=== PATIENT | female | born 1965 | race Caucasian/White ===

== ENCOUNTER 2018-12-27 16:46 | Emergency (ER) | payer MEDICAID ==
[~2018-12-27] VITALS: Ht 152.4 cm; Wt 78.5 kg
[~2018-12-27 16:46] MED LIST: ATENOLOL25 MG PO; ATORVASTATIN CA40 M1 PO; COLACE100 MG PO; ECO81 PO; LIPI20 PO; LISINOPRIL2.5 MG PO; NORCO1 TA2 PO; TEN25 PO; ZES10 PO; ZESTRIL20 MG PO
[2018-12-27 16:56] VITALS: Ht 152.4 cm; Wt 78.5 kg
[2018-12-27 17:41] LABS: BASOPHIL % 0.2 % (0-2); PLATELET COUNT 206 x10^3mcL (130-400); RED CELL DISTRIBUTION WIDTH 13.3 % (11.5-14.5)
[2018-12-27 17:49] LABS: CALCIUM 9.4 mg/dL (8.5-10.1); CARBON DIOXIDE 27.4 mmol/L (21-32); CHLORIDE SERUM 106 mmol/L (98-107); CREATININE SERUM 0.8 mg/dL (0.6-1.0); GFR1 > 60 mL/min; GLUCOSE SERUM 115 mg/dL (74-106); SODIUM SERUM 143 mmol/L (136-145)
[2018-12-27 17:53] LABS: ALBUMIN 3.8 g/dL (3.4-5.0); ALKALINE PHOSPHATASE 53 U/L (46-116); ALT/SGPT 22 U/L (14-59); AST/SGOT 12 U/L (15-37); BILIRUBIN TOTAL 0.35 mg/dL (0.20-1.00); LIPASE 73 IU/L (73-393)
[2018-12-27 21:03] VITALS: BP 180/102
== END 2018-12-27 21:03 | disposition home or self-care (01) ==
LOC: ED 16:46
PROVIDERS: Emergency Medicine
DX: K29.70 Gastritis, unspecified, without bleeding (principal); I10 Essential (primary) hypertension; F41.9 Anxiety disorder, unspecified; Z86.2 Personal history of diseases of the blood and blood-forming organs and certain disorders involving the immune mechanism
CPT/HCPCS: J2405; J7030; Q0092